=== PATIENT | male | born 1930 | race Caucasian/White ===

== ENCOUNTER 2017-01-06 16:19 | Emergency (ER) | payer OTHER, MEDICARE ==
[~2017-01-06] VITALS: Ht 172.7 cm; Wt 72.6 kg
[~2017-01-06 16:19] MED LIST: CO-Q1030 MG PO; COLACE100 MG PO; COUMADIN 7.5 M7.5 MG PO; DULERA1 ARO INH; PERCOCET 325 MG1 TA2 PO; SIMVASTATIN40 MG PO
[2017-01-06 16:29] VITALS: BP 163/93
--- NOTE | 2017-01-06 17:05 | ED NECK/BACK PAIN COMPLAINT ---
History of Present Illness General Chief Complaint: Neck/Upper Back Pain/Injury Stated Complaint: NECK PAIN Source: patient Exam Limitations: no limitations Vital Signs & Intake/Output Vital Signs & Intake/Output Vital Signs Date Time Temp Pulse Resp B/P Pulse O2 O2 Flow FiO2 Ox Delivery Rate 01/06 1728 Room Air 01/06 1629 97.4 60 20 163/93 94 Room Air Allergies Coded Allergies: No Known Allergies (01/04/16) Reconcile Medications Cyclobenzaprine HCl 10 MG TABLET 1 TAB PO QPM PRN MUSCLE RELAXOR Hydrocodone/Acetaminophen (Vicodin 5-300 MG Tablet) 5 MG-300 MG TABLET 1 TAB PO TID PRN PAIN Ibuprofen 600 MG TABLET 1 TAB PO TID PRN PAIN with food Mometasone/Formoterol (Dulera 100 Mcg/5 Mcg Inhaler) (Unknown Strength) HFA.AER.AD (Unknown Dose) INH AD RESPIRATORY (Reported) Triage Note: RECEIVED 86 YO MALE C/O POSTERIOR NECK PAIN AND SEVERE NECK STIFFNESS, UNABLE TO TURN NECK WITHOUT SEVERE PAIN. Triage Nurses Notes Reviewed? yes Onset: Gradual Duration: getting worse Timing: single episode today Quality/Severity: severe, sharpness Location: paraspinous muscles Radiation: none Method of Injury: unknown HPI: Patient is a 86-year-old male who presents emergency and that he was in his normal state of health last night and which patient states that he bought a new pillow and used it last night and one patient woke up this morning he noticed a gradual onset of generalized neck pain and neck stiffness and throughout the day his neck pain and neck stiffness had progressively worsened and is now has significant limited range of motion. Patient did not take any medications for symptoms are tried icing and heating the region. Denies any fever chills headache blurred vision dizziness lightheaded sensation extremity paresthesia pain or weakness. Denies any cough, facial droop. Patient does state that he feels a little off with ambulation due to the limited range of motion Past History Travel History Traveled to [place] past 21 day No Medical History Any Pertinent Medical History? 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 No Review of Systems Review of Systems Constitutional: Reports: no symptoms. Eyes: Reports: no symptoms. Ears, Nose, Throat, Mouth: Reports: no symptoms. Respiratory: Reports: no symptoms. Cardiovascular: Reports: no symptoms. Gastrointestinal/Abdominal: Reports: no symptoms. Musculoskeletal: Reports: see HPI, muscle pain, muscle stiffness, neck pain. Skin: Reports: no symptoms. Neurological/Psychological: Reports: no symptoms. All Other Systems: Reviewed and Negative Physical Exam Physical Exam General Appearance: mild distress Neck: normal inspection, supple, normal alignment, paraspinous muscle tender, stiff neck, tender lateral, no midline tenderness Comments: HEENT: Normal EENT exam, extraocular motion intact, no nystagmus. Pupils equally round and reactive to light and accommodation. Nose is atraumatic. External auditory canal and Tympanic membranes clear. Pharynx normal. No swelling or edema. Neck: Normal inspection, normal alignment, no central spinous tenderness moderate bilateral paracervical muscular tenderness noted, significantly decreased range of motion noted Back: Nontender, no CVA tenderness. Cardiovascular: Regular rate and rhythms no murmurs rubs or gallops, normal JVP Respiratory: Chest nontender. No respiratory distress.breath sounds clear to auscultation bilaterally Abdomen: Soft, nontender nondistended, no appreciable organomegaly. Normal bowel sounds. No ascites Extremity: No edema, no calf tenderness to palpation, normal and equal pulses. Bilateral upper extremity myotomes dermatomes DTRs intact Neuro: Alert oriented x3, motor sensory normal, cranial nerves II through XII grossly intact. Negative Kernig Skin: No appreciable rash on exposed skin, skin is warm and dry. Psych: Mood and affect is normal, memory and judgment is normal. Progress Differential Diagnosis: AAA, aortic dissection, C spine injury, carotid dissection, cauda equina syn, herniated disc, myofascial strain, pyelo/UTI, sciatica, spinal cord inj, thoracic outlet syn, T/L spine injury, ureterolithiasis, MENINGITIS DISCITIS SPINAL ABSCESS TRANSVERSE MYELITIS Plan of Care: Current Medications Sig/Mason Start time Last Medication Dose Stop Time Status Admin Acetaminophen/ 1 TAB ONCE ONE 01/06 1715 UNVr Hydrocodone Bitart 01/07 1716 (Vicodin) Ibuprofen 600 MG ONCE ONE 01/06 1715 UNVr (Motrin) 01/07 1716 Patient is afebrile nontoxic-appearing and denies any systemic signs or symptoms of infection. Due to past medical history history of present illness and exam findings patient is likely to have cervical strain sprain due to a new pillow use last night which patient had no compromise of upper extremity neurovascular involvement and no neurological deficiencies on exam. Patient had normal steady gait and discharge Patient did receive a ride to the emergency room and will receive ON TO GET home ([facility],GAURAV) Departure Departure Disposition: HOME OR SELF CARE Condition: Stable Clinical Impression Primary Impression: Neck pain Referrals: VEE WONG MD (PCP/Family) Additional Instructions: DISCUSSED BEGIN ICING THE AREA 20 MINUTES EVERY TWO HOURS BEGIN THE prescription of ibuprofen as directed for pain and inflammation begin the prescription of Vicodin for breakthrough pain relief and begin the prescription of cyclobenzaprine for muscle relaxation. If symptoms worsen return to emergency room. Prescriptions waiting at [facility] pharmacy. If no better on Friday follow-up with primary care doctor and/or follow up with orthopedic DR. HSIEH for further evaluation treatment. Departure Forms: Customer Survey General Discharge Information Prescriptions: Current Visit Scripts Cyclobenzaprine HCl 1 TAB PO QPM PRN MUSCLE RELAXOR #7 TAB Hydrocodone/Acetaminophen (Vicodin 5-300 MG Tablet) 1 TAB PO TID PRN PAIN #9 TAB Ibuprofen 1 TAB PO TID PRN PAIN #21 TAB with food
[2017-01-06] MEDS ORDERED: VICODIN 5-3001 EACH PO (17:15)
[2017-01-06] MEDS ORDERED: CYCLOBENZAPRINE10 M1 PO (17:15)
[2017-01-06] MEDS ORDERED: IBUPROFEN600 M1 PO (17:15)
[2017-01-06] MEDS ORDERED: DULERA 100 MCG/13 GM INH (17:39)
== END 2017-01-06 17:30 ==
LOC: ERH 16:19
DX: M54.2 Cervicalgia (principal)

== ENCOUNTER 2017-05-01 11:50 | Emergency (ER) | payer OTHER, MEDICARE ==
[~2017-05-01] VITALS: Ht 172.7 cm; Wt 72.6 kg
[~2017-05-01 11:50] MED LIST changes: +CYCLOBENZAPRINE10 M1 PO; +DULERA 100 MCG/13 GM INH; +IBUPROFEN600 M1 PO; +VICODIN 5-3001 EACH PO
[2017-05-01 12:01] VITALS: BP 137/81
--- NOTE | 2017-05-01 12:22 | ED HAND/WRIST INJURY COMPLAINT ---
History of Present Illness General Chief Complaint: Hand or Wrist Injury Stated Complaint: R MIDDLE FINGER INJURY, ?SWOLLEN Source: patient, old records Exam Limitations: no limitations Vital Signs & Intake/Output Vital Signs & Intake/Output Vital Signs Date Time Temp Pulse Resp B/P B/P Pulse O2 O2 Flow FiO2 Mean Ox Delivery Rate 05/01 1201 97.2 75 16 137/81 95 Room Air Allergies Coded Allergies: cat dander (UNKNOWN 05/01/17) Reconcile Medications Mometasone/Formoterol (Dulera 100 Mcg/5 Mcg Inhaler) 100 MCG-5 MCG/ACTUATION HFA.AER.AD 1 PUFF INH BID RESPIRATORY (Reported) Triage Note: PT HAD INJURY TO RIGHT MIDDLE FINGER. PT STATES THIS WAS 3 WEEKS AGO AND FINGER REMAINS SWOLLEN. Triage Nurses Notes Reviewed? yes HPI: 3 weeks ago patient jammed his right middle finger. Since then his middle finger has remained swollen. He has a throbbing pain which she rates as 3 out of 10. There is no mitigating or aggravating factors. There is no numbness or tingling. There is no radiation. Patient figured since it has not gotten better he will come in for evaluation. Past History Travel History Traveled to [place] past 21 day No Medical History Any Pertinent Medical History? 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 No Review of Systems Review of Systems Constitutional: Reports: no symptoms. Respiratory: Reports: no symptoms. Cardiovascular: Reports: no symptoms. GI: Reports: no symptoms. Musculoskeletal: Reports: see HPI, joint pain, joint swelling. Neurological/Psychological: Reports: no symptoms. Immunologic/Allergic: Reports: no symptoms. Physical Exam Physical Exam General Appearance: well developed/nourished, alert, awake Eyes: Bilateral: PERRL, EOMI. Neck: normal inspection, supple, full range of motion Cardiovascular/Respiratory: normal breath sounds, normal peripheral pulses, regular rate/rhythm, no respiratory distress Hand Left: normal inspection, normal range of motion Hand Right: evidence of injury, swelling, 3rd finger Neurologic/Tendon: normal sensation, normal motor functions, normal tendon functions Lymphatic: no anterior cervical carey Progress Differential Diagnosis: fracture, sprain Plan of Care: Orders Procedure Date/time Status XRY-FINGERS, RIGHT 05/01 1203 Active Diagnostic Imaging: Viewed by Me: Radiology Read. Discussed w/RAD: Radiology Read. Departure Departure Disposition: HOME OR SELF CARE Condition: Stable Clinical Impression Primary Impression: Sprain of right middle finger Qualifiers: Encounter type: initial encounter Sprain of finger site: unspecified site Qualified Code: S63.612A - Unspecified sprain of right middle finger, initial encounter Referrals: EROS WILL,VEE LANE MD (PCP/Family) Additional Instructions: WEAR SPLINT FOR THE NEXT WEEK RETURN FOR ANY CONCERNS Departure Forms: Customer Survey General Discharge Information Procedures Splinting Location: RIGHT MIDDLE FINGER Manual Alignment Performed: No Pre-Made Type: metal Splint: FINGER Splint Applied By: splint applied by other Pre-Proc Neuro Vasc Exam: normal Post-Proc Neuro Vasc Exam: normal
--- NOTE | 2017-05-01 12:42 | RADIOLOGY REPORT ---
EXAMINATION: XR FINGER, RIGHT CLINICAL INFORMATION: Pain and swelling of the middle finger. Evaluate for fracture. COMPARISON: 01/04/2016 TECHNIQUE: 3 views of the right middle finger were obtained. FINDINGS: No acute fracture or malalignment within the middle finger. Soft tissue swelling around the PIP joint of the middle finger. There is an old 2 mm soft tissue calcification projecting lateral to the PIP joint. Chronic, mild osteoarthrosis of the first carpometacarpal joint, MCP joints and IP joints. No osseous erosion or periostitis. IMPRESSION: 1. No acute osseous injury within the right middle finger. 2. Soft tissue swelling around the PIP joint without acute fracture or malalignment. 3. Mild osteoarthrosis of multiple joints; no evidence of an erosive/inflammatory arthropathy.
== END 2017-05-01 12:28 ==
LOC: ERH 11:50
DX: S63.612A Unspecified sprain of right middle finger, initial encounter (principal); W23.1XXA Caught, crushed, jammed, or pinched between stationary objects, initial encounter; Y93.9 Activity, unspecified; Y92.9 Unspecified place or not applicable
CPT/HCPCS: 73140-RT

== ENCOUNTER 2017-11-01 06:46 | Emergency (ER) | payer OTHER, MEDICARE ==
[~2017-11-01] VITALS: Ht 172.7 cm; Wt 70.3 kg
--- NOTE | 2017-11-01 07:26 | ED MVC/FALL/TRAUMA COMPLAINT ---
History of Present Illness General Chief Complaint: Fall Stated Complaint: FALL Source: patient, old records Exam Limitations: no limitations Vital Signs & Intake/Output Vital Signs & Intake/Output Vital Signs Date Time Temp Pulse Resp B/P B/P Pulse O2 O2 Flow FiO2 Mean Ox Delivery Rate 11/01 0920 98.2 60 20 145/78 95 Room Air 11/01 0806 Room Air Room Air 11/01 0712 99.1 73 16 143/77 99 Room Air Allergies Coded Allergies: cat dander (UNKNOWN 11/01/17) Reconcile Medications Albuterol Sulfate (Proair Hfa) 90 MCG HFA.AER.AD 2 PUF INH Q4-6 PRN PRN RESPIRATORY (Reported) Aspirin (Aspirin*) 81 MG TAB.CHEW 1 TAB PO DAILY HEART HEALTH (Reported) Mometasone/Formoterol (Dulera 100 Mcg/5 Mcg Inhaler) 100 MCG-5 MCG/ACTUATION HFA.AER.AD 1 PUFF INH BID RESPIRATORY (Reported) Triage Note: PT TO ED FOR A MECHANICAL TRIP AND FALL AT HOME FRIDAY. C/O BILATERAL HAND AND WRIST PAIN. DECLINES MEDS IN TRIAGE. PT ARRIVES TO TRIAGE WITH COAT ON UPSIDE DOWN AND PER REGISTRATION WAS VERY UNSTEADY WHEN TRANSFERRING FROM WHEELCHAIR TO CHAIR. Triage Nurses Notes Reviewed? yes HPI: Patient presents with pain to both hands and wrist after a fall on . Patient thinks that he just lost his balance and fell however he is a little unsure. Patient denies hitting his head and there was no loss of conscious. Patient lives at home alone. Patient states the pain in his left hand is worse than the pain in his right hand. The pain is throbbing in nature. Pain increases with movement. There is no radiation. He rates the pain as moderate on the pain scale. Patient observed to have almost fallen twice at our waiting room. Patient states that he had difficulty putting his coat on this morning. Patient's coat is upside down. Past History Travel History Traveled to [place] past 21 day No Medical History Any Pertinent Medical History? 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 No Review of Systems Review of Systems Constitutional: Reports: no symptoms. Eyes: Reports: no symptoms. Ears, Nose, Throat, Mouth: Reports: no symptoms. Respiratory: Reports: no symptoms. Cardiovascular: Reports: no symptoms. Gastrointestinal/Abdominal: Reports: no symptoms. Genitourinary: Reports: no symptoms. Musculoskeletal: Reports: see HPI, joint pain. Skin: Reports: no symptoms. Neurological/Psychological: Reports: no symptoms. All Other Systems: Reviewed and Negative Physical Exam Physical Exam General Appearance: well developed/nourished, alert, awake, mild distress Head: atraumatic, normal appearance Eyes: Bilateral: PERRL, EOMI. Ears, Nose, Throat, Mouth: hearing grossly normal, moist mucous membrane Neck: normal inspection, supple, full range of motion, no midline tenderness Respiratory: normal breath sounds, chest non-tender, no respiratory distress, lungs clear Cardiovascular: regular rate/rhythm, normal peripheral pulses Gastrointestinal: normal bowel sounds, soft, non-tender, no organomegaly Back: normal inspection, normal range of motion, no vertebral tenderness Extremities: ECCHYMOSIS TO THE BASE OF BOTH THUMBS, TENDER TO PALP, FULL ROM, NO TENDERNESS TO THE SNUFF BOX. Neurologic/Psych: no motor/sensory deficits, awake, alert, oriented x 3, normal mood/affect, PT IS A&O X 3 BUT HE APPEARS TO BE HAVING PROBLEMS WITH SHORT TERM MEMORY. Skin: intact, warm/dry Core Measures ACS in differential dx? No CVA/TIA Diagnosis No Sepsis Present: No Sepsis Focused Exam Completed? No Progress Differential Diagnosis: C/T/L spine injury, ext injury, ICH Plan of Care: Orders Procedure Date/time Status URINALYSIS 11/01 725 Complete TROPONIN LEVEL 11/01 725 Complete COMPREHENSIVE METABOLIC PANEL 11/01 725 Complete CBC WITHOUT DIFFERENTIAL 11/01 725 Complete EKG 11/01 725 Active Laboratory Tests 11/01/17 0807: Urine Color YEL, Urine Clarity CLEAR, Urine pH 7.0, Ur Specific [place] 1.020, Urine Protein TRACE H, Urine Ketones NEG, Urine Nitrite NEG, Urine Bilirubin NEG, Urine Urobilinogen 0.2, Ur Leukocyte Esterase NEG, Ur Microscopic SEDIMENT EXAMINED, Urine RBC RARE, Ur Epithelial Cells RARE, Urine Bacteria RARE H, Urine Mucus FEW, Urine Hemoglobin NEG, Urine Glucose NEG 11/01/17 0804: Anion Gap 12, Estimated GFR > 60, BUN/Creatinine Ratio 18.9, Glucose 116 H, Calcium 9.0, Total Bilirubin 0.6, AST 28, ALT 28, Alkaline Phosphatase 93, Troponin I < 0.01, Total Protein 6.7, Albumin 3.9, Globulin 2.8, Albumin/ Globulin Ratio 1.4, CBC w Diff NO MAN DIFF REQ, RBC 4.45 L, MCV 88.8, MCH 29.9, RDW 13.8, MPV 8.5, Gran % 83.2 H, Lymphocytes % 6.3 L, Monocytes % 7.5, Eosinophils % 2.7, Basophils % 0.3, Absolute Granulocytes 8.9 H, Absolute Lymphocytes 0.7 L, Absolute Monocytes 0.8 H, Absolute Eosinophils 0.3, Absolute Basophils 0, PUBS MCHC 33.7 Diagnostic Imaging: Viewed by Me: Radiology Read, CT Scan. Discussed w/RAD: Radiology Read, CT Scan. Radiology Impression: PATIENT: ABBEY CELESTE PRESENT AGE: 87 PATIENT ACCOUNT NO: [id number] : 32 LOCATION: [facility] ORDERING PHYSICIAN: El Treadwell MD SERVICE DATE: 11/01/17 EXAM TYPE: RAD - XRY-WRIST COMPLETE-RIGHT EXAMINATION: XR WRIST, RIGHT CLINICAL INFORMATION: Pain status-post fall. COMPARISON: Prior radiographs dated 2015. TECHNIQUE: PA, lateral, and oblique views of the right wrist are submitted , together with a dedicated navicular view. FINDINGS: Bony alignment and mineralization are normal. There is a neutral ulnar variance. No acute fracture or dislocation is seen. The proximal and distal carpal rows are intact. There is mild osteoarthritic change of the first carpometacarpal joint. The soft tissue planes are unremarkable, without foreign body. IMPRESSION: 1. No acute fracture or dislocation is seen. 2. There is mild osteoarthritic change of the right first carpometacarpal joint. DICTATED BY: Jerman Howard MD DATE/TIME DICTATED:809 RECORDS MANAGEMENT ASSOCIATE:AAYUSH DATE/TIME TRANSCRIBED:11/01/17809 CONFIDENTIAL, DO NOT COPY WITHOUT APPROPRIATE AUTHORIZATION. <Electronically signed in Other Vendor System> SIGNED BY: Jerman Howard MD 11/01/17815, PATIENT: ABBEY CELESTE PRESENT AGE: 87 PATIENT ACCOUNT NO: [id number] : 32 LOCATION: [facility] [place] ORDERING PHYSICIAN: El Treadwell MD SERVICE DATE: 11/01/17 EXAM TYPE: RAD - XRY-WRIST COMPLETE -LEFT EXAMINATION: XR WRIST, LEFT CLINICAL INFORMATION: Pain status-post fall. COMPARISON: Prior radiographs dated 01/04/2016. TECHNIQUE: PA, lateral, and oblique views of the left wrist are submitted, together with dedicated navicular views. FINDINGS: Bony alignment and mineralization are normal. There is a neutral ulnar variance. No acute fracture or dislocation is seen. The proximal and distal carpal rows are intact. 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 There is moderate osteoarthritic change of the first carpometacarpal joint. The soft tissue planes are unremarkable, without foreign body. IMPRESSION: 1. No acute fracture or dislocation is seen. 2. There is moderate osteoarthritic change of the left first carpometacarpal joint. DICTATED BY: Jerman Howard MD DATE/TIME DICTATED:11/01/17805 RECORDS MANAGEMENT ASSOCIATE:AAYUSH DATE/TIME TRANSCRIBED:805 CONFIDENTIAL, DO NOT COPY WITHOUT APPROPRIATE AUTHORIZATION. < Electronically signed in Other Vendor System> SIGNED BY: Jerman Howard MD 11/01/17812, PATIENT: ABBEY CELESTE PRESENT AGE : 87 PATIENT ACCOUNT NO: [id number] : 32 LOCATION: [facility] [place] ORDERING PHYSICIAN: El Treadwell MD SERVICE DATE: 11/01/17 EXAM TYPE: RAD - XRY-HAND TWO VIEWS R EXAMINATION: XR HAND, RIGHT CLINICAL INFORMATION: Pain status-post fall. COMPARISON: Prior radiographs dated 01/04/2016. TECHNIQUE: Frontal and lateral views of the right hand. FINDINGS: Bony alignment and mineralization are normal. There is mild osteoarthritic change of the left first carpometacarpal joint. No acute fracture or dislocation is seen. The soft tissue planes are unremarkable, without foreign body. IMPRESSION: 1. No acute fracture or dislocation is seen. 2. There is mild osteoarthritic change of the right first carpometacarpal joint. DICTATED BY: Jerman Howard MD DATE/TIME DICTATED:815 RECORDS MANAGEMENT ASSOCIATE:DILLON DATE/TIME TRANSCRIBED:11/01/17815 CONFIDENTIAL, DO NOT COPY WITHOUT APPROPRIATE AUTHORIZATION. <Electronically signed in Other Vendor System> SIGNED BY: Jerman Howard MD 11/01/17820, PATIENT: ABBEY CELESTE PRESENT AGE: 87 PATIENT ACCOUNT NO: [id number] : 32 LOCATION: [facility] ORDERING PHYSICIAN: El Treadwell MD SERVICE DATE: 11/01/17 EXAM TYPE: RAD - XRY-HAND, TWO VIEWS L EXAMINATION: XR HAND, LEFT CLINICAL INFORMATION: Pain status-post fall. COMPARISON: Prior radiographs dated 01/04/2016. TECHNIQUE: Frontal and lateral views of the left hand. FINDINGS: Bony alignment and mineralization are normal. An old, healed fracture is again suspected of the neck of the left fifth metacarpal bone. There is moderate osteoarthritic change of the left first carpometacarpal joint. No acute fracture or dislocation is seen. The soft tissue planes are unremarkable, without foreign body. IMPRESSION: 1. No acute fracture or dislocation is seen. 2. There is moderate osteoarthritic change of the left first carpometacarpal joint. DICTATED BY: Jerman Howard MD DATE/TIME DICTATED:812 RECORDS MANAGEMENT ASSOCIATE:DILLON DATE/TIME TRANSCRIBED:11/01/17812 CONFIDENTIAL, DO NOT COPY WITHOUT APPROPRIATE AUTHORIZATION. <Electronically signed in Other Vendor System> SIGNED BY: Jerman Howard MD 11/01/17818, PATIENT: ABBEY CELESTE PRESENT AGE: 87 PATIENT ACCOUNT NO: [id number] : 32 LOCATION: [facility] [place] ORDERING PHYSICIAN: El Treadwell MD SERVICE DATE: 11/01/17 EXAM TYPE: CAT - CT HEAD WO IV CONTRAST EXAMINATION: CT HEAD WITHOUT CONTRAST CLINICAL INFORMATION: Confusion status post-post fall; question intracranial hemorrhage. COMPARISON: CT examinations of the brain dated 01/04/2016 and 02/05/2013. TECHNIQUE: Contiguous axial imaging was performed from the skull base to vertex without intravenous administration of contrast. Additional coronal reformatted images are submitted. DLP: 910.70 mGy-cm FINDINGS: There is no evidence of acute intracranial hemorrhage or territorial infarction. No abnormal mass effect or midline shift is seen. Ha to white matter differentiation is well preserved. No extra-axial fluid collections are identified. The ventricles are age-appropriate in size. There is mild patchy low attenuation change in the periventricular white matter spaces. There is atherosclerotic change of the skull base vasculature. The osseous structures and soft tissues are normal. There is mild ethmoid sinusitis. The mastoid air cells are well-aerated and clear. IMPRESSION: 1. No acute intracranial pathology. There is no significant interim change. 2. There is mild patchy low attenuation change, commonly associated with chronic microangiopathy. 3. There is mild ethmoid sinusitis. DICTATED BY: Jerman Howard MD DATE/TIME DICTATED:11/01/17817 RECORDS MANAGEMENT ASSOCIATE:AAYUSH DATE/TIME TRANSCRIBED:817 CONFIDENTIAL, DO NOT COPY WITHOUT APPROPRIATE AUTHORIZATION. < Electronically signed in Other Vendor System> SIGNED BY: Jerman Howard MD 11/01/17825, PATIENT: ABBEY CELESTE PRESENT AGE : 87 PATIENT ACCOUNT NO: [id number] : 32 LOCATION: [facility] ORDERING PHYSICIAN: El Treadwell MD SERVICE DATE: 11/01/17 EXAM TYPE: CAT - CT CERV SPINE WO IV CONTRAST EXAMINATION: CT CERVICAL SPINE WITHOUT CONTRAST CLINICAL INFORMATION: Pain status-post fall. COMPARISON: Prior CT examinations dated 01/04/2016 and 02/05/2013. TECHNIQUE: Without the addition of intravenous contrast, multiple contiguous multidetector transaxial sections are obtained through the cervical spine. Multiplanar reformatted images are submitted. DLP: 1532.31 mGy-cm FINDINGS: Vertebral body heights are normal. There is moderate disc space narrowing with associated posterior spondylosis at C2-C3. At C3-C4, there is moderately severe degenerative disc disease, with a 2 mm anterolisthesis, disc space narrowing, vacuum phenomenon and C3 lower endplate Schmorl's node formation. There is marked degenerative disc disease at C4-C5, with a stable 4 mm anterolisthesis, disc space narrowing, spondylosis and chronic posterior vertebral body fusion. There is further marked degenerative disc disease, spondylosis and Schmorl's node formation at C5-C6 and C6-C7. At C7 -T1, there is a 3 mm anterolisthesis. At C7-T1 and T1-T2, there is anterior bridging osteophyte formation. At T2-T3, there is marked anterior spondylosis. No acute fracture or spondylolisthesis is seen. There is multi-level bilateral facet arthropathy. The dens is intact, with arthritic changes seen of the atlantoaxial joint. There is no prevertebral soft tissue swelling. IMPRESSION: 1. No acute fracture or spondylolisthesis is seen. 2. There is multi-level marked cervical and upper thoracic degenerative disc disease, spondylosis and facet arthropathy. DICTATED BY: Jerman Howard MD DATE/TIME DICTATED:11/01/17822 RECORDS MANAGEMENT ASSOCIATE:AAYUSH DATE/TIME TRANSCRIBED:11/01/17822 CONFIDENTIAL, DO NOT COPY WITHOUT APPROPRIATE AUTHORIZATION. <Electronically signed in Other Vendor System> SIGNED BY: Jerman Howard MD 11/01/17833 Initial ED EKG: SINUS ARRYTHMIA, FIRST DEGREE HB, NO ISCHEMIC CHANGES, NO CHANGE FROM PRIOR Prior EKG: unchanged Comments: Patient ambulated in the emergency department without difficulty. Patient feels comfortable going home. Patient remains conscious and alert and oriented 3. Departure Departure Disposition: HOME OR SELF CARE Condition: Stable Clinical Impression Primary Impression: Sprain of hand, thumb, left Qualifiers: Encounter type: initial encounter Sprain of finger site: unspecified site Qualified Code: S63.602A - Unspecified sprain of left thumb, initial encounter Secondary Impressions: Sprain of hand, thumb, right Qualifiers: Encounter type: initial encounter Sprain of finger site: unspecified site Qualified Code: S63.601A - Unspecified sprain of right thumb, initial encounter Referrals: Cata WILL,Juanjose Johnson MD (PCP/Family) Additional Instructions: FOLLOW UP WITH DR. WONG THIS WEEK\ FOLLOW UP WITH DR. CHASE IF YOUR HANDS DO NOT GET BETTER RETURN FOR ANY CONCERNS Departure Forms: Customer Survey General Discharge Information
[2017-11-01] MEDS ORDERED: PROAIR HFA8.5 GM INH (08:03)
[2017-11-01] MEDS ORDERED: ASPIRIN81 M4 PO (08:05)
--- NOTE | 2017-11-01 08:13 | RADIOLOGY REPORT ---
EXAMINATION: XR WRIST, LEFT CLINICAL INFORMATION: Pain status-post fall. COMPARISON: Prior radiographs dated 01/04/2016. TECHNIQUE: PA, lateral, and oblique views of the left wrist are submitted, together with dedicated navicular views. FINDINGS: Bony alignment and mineralization are normal. There is a neutral ulnar variance. No acute fracture or dislocation is seen. The proximal and distal carpal rows are intact. 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 There is moderate osteoarthritic change of the first carpometacarpal joint. The soft tissue planes are unremarkable, without foreign body. IMPRESSION: 1. No acute fracture or dislocation is seen. 2. There is moderate osteoarthritic change of the left first carpometacarpal joint.
--- NOTE | 2017-11-01 08:16 | RADIOLOGY REPORT ---
EXAMINATION: XR WRIST, RIGHT CLINICAL INFORMATION: Pain status-post fall. COMPARISON: Prior radiographs dated 01/04/2016. TECHNIQUE: PA, lateral, and oblique views of the right wrist are submitted, together with a dedicated navicular view. FINDINGS: Bony alignment and mineralization are normal. There is a neutral ulnar variance. No acute fracture or dislocation is seen. The proximal and distal carpal rows are intact. There is mild osteoarthritic change of the first carpometacarpal joint. The soft tissue planes are unremarkable, without foreign body. IMPRESSION: 1. No acute fracture or dislocation is seen. 2. There is mild osteoarthritic change of the right first carpometacarpal joint.
--- NOTE | 2017-11-01 08:19 | RADIOLOGY REPORT ---
EXAMINATION: XR HAND, LEFT CLINICAL INFORMATION: Pain status-post fall. COMPARISON: Prior radiographs dated 01/04/2016. TECHNIQUE: Frontal and lateral views of the left hand. FINDINGS: Bony alignment and mineralization are normal. An old, healed fracture is again suspected of the neck of the left fifth metacarpal bone. There is moderate osteoarthritic change of the left first carpometacarpal joint. No acute fracture or dislocation is seen. The soft tissue planes are unremarkable, without foreign body. IMPRESSION: 1. No acute fracture or dislocation is seen. 2. There is moderate osteoarthritic change of the left first carpometacarpal joint.
--- NOTE | 2017-11-01 08:21 | RADIOLOGY REPORT ---
EXAMINATION: XR HAND, RIGHT CLINICAL INFORMATION: Pain status-post fall. COMPARISON: Prior radiographs dated 01/04/2016. TECHNIQUE: Frontal and lateral views of the right hand. FINDINGS: Bony alignment and mineralization are normal. There is mild osteoarthritic change of the left first carpometacarpal joint. No acute fracture or dislocation is seen. The soft tissue planes are unremarkable, without foreign body. IMPRESSION: 1. No acute fracture or dislocation is seen. 2. There is mild osteoarthritic change of the right first carpometacarpal joint.
--- NOTE | 2017-11-01 08:26 | CT SCAN REPORT ---
EXAMINATION: CT HEAD WITHOUT CONTRAST CLINICAL INFORMATION: Confusion status post-post fall; question intracranial hemorrhage. COMPARISON: CT examinations of the brain dated 01/04/2016 and 02/05/2013. TECHNIQUE: Contiguous axial imaging was performed from the skull base to vertex without intravenous administration of contrast. Additional coronal reformatted images are submitted. DLP: 910.70 mGy-cm FINDINGS: There is no evidence of acute intracranial hemorrhage or territorial infarction. No abnormal mass effect or midline shift is seen. Ha to white matter differentiation is well preserved. No extra-axial fluid collections are identified. The ventricles are age-appropriate in size. There is mild patchy low attenuation change in the periventricular white matter spaces. There is atherosclerotic change of the skull base vasculature. The osseous structures and soft tissues are normal. There is mild ethmoid sinusitis. The mastoid air cells are well-aerated and clear. IMPRESSION: 1. No acute intracranial pathology. There is no significant interim change. 2. There is mild patchy low attenuation change, commonly associated with chronic microangiopathy. 3. There is mild ethmoid sinusitis.
--- NOTE | 2017-11-01 08:34 | CT SCAN REPORT ---
EXAMINATION: CT CERVICAL SPINE WITHOUT CONTRAST CLINICAL INFORMATION: Pain status-post fall. COMPARISON: Prior CT examinations dated 01/04/2016 and 02/05/2013. TECHNIQUE: Without the addition of intravenous contrast, multiple contiguous multidetector transaxial sections are obtained through the cervical spine. Multiplanar reformatted images are submitted. DLP: 1532.31 mGy-cm FINDINGS: Vertebral body heights are normal. There is moderate disc space narrowing with associated posterior spondylosis at C2-C3. At C3-C4, there is moderately severe degenerative disc disease, with a 2 mm anterolisthesis, disc space narrowing, vacuum phenomenon and C3 lower endplate Schmorl's node formation. There is marked degenerative disc disease at C4-C5, with a stable 4 mm anterolisthesis, disc space narrowing, spondylosis and chronic posterior vertebral body fusion. There is further marked degenerative disc disease, spondylosis and Schmorl's node formation at C5-C6 and C6-C7. At C7-T1, there is a 3 mm anterolisthesis. At C7-T1 and T1-T2, there is anterior bridging osteophyte formation. At T2-T3, there is marked anterior spondylosis. No acute fracture or spondylolisthesis is seen. There is multi-level bilateral facet arthropathy. The dens is intact, with arthritic changes seen of the atlantoaxial joint. There is no prevertebral soft tissue swelling. IMPRESSION: 1. No acute fracture or spondylolisthesis is seen. 2. There is multi-level marked cervical and upper thoracic degenerative disc disease, spondylosis and facet arthropathy.
[2017-11-01 08:37] LABS: ABSOLUTE BASOPHIL COUNT 0 /CUMM (0.0-0.2); ABSOLUTE EOSINOPHIL COUNT 0.3 /CUMM (0.0-0.7); ABSOLUTE GRANULOCYTE CT 8.9 /CUMM (1.4-6.5); ABSOLUTE LYMPH COUNT 0.7 /CUMM (1.2-3.4); ABSOLUTE MONOCYTE COUNT 0.8 /CUMM (0.10-0.60); BASOPHIL % 0.3 % (0.0-2.0); EOSINOPHIL % 2.7 % (0-5); HEMATOCRIT 39.6 % (42-52); MEAN CORPUSCULAR HGB 29.9 PG (27.0-31.0); MEAN CORPUSCULAR HGB CONC 33.7 G/DL (33.0-37.0); MEAN CORPUSCULAR VOLUME 88.8 FL (80.0-94.0); MEAN PLATELET VOLUME 8.5 FL (7.4-10.4); PLATELET COUNT 215 /CUMM (130-400); RBC DISTRIBUTION WIDTH 13.8 % (11.5-14.5); RED BLOOD CELL CT 4.45 /CUMM (4.70-6.10); WHITE BLOOD CELL COUNT 10.7 /CUMM (4.8-10.8)
[2017-11-01 08:57] LABS: GRANULOCYTE % 83.2 % (42.2-75.2)
[2017-11-01 09:20] VITALS: BP 145/78
== END 2017-11-01 10:16 ==
LOC: ERH 06:46
PROVIDERS: Emergency Medicine
DX: S63.601A Unspecified sprain of right thumb, initial encounter (principal); S63.602A Unspecified sprain of left thumb, initial encounter; M25.531 Pain in right wrist; M25.532 Pain in left wrist; J45.909 Unspecified asthma, uncomplicated; W19.XXXA Unspecified fall, initial encounter; Y93.9 Activity, unspecified
CPT/HCPCS: 73110-LT; 73110-RT; 73120-LT; 73120-RT; 81001; 93005; 93010